=== PATIENT | male | born 2000 ===

== ENCOUNTER 2021-05-04 18:57 | Emergency (ER) | payer SELFPAY ==
[2021-05-04 23:18] VITALS: BP 142/91
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
== END 2021-05-05 00:10 | disposition home or self-care (01) ==
LOC: ED 18:57
DX: M79.602 Pain in left arm (principal); V49.49XA Driver injured in collision with other motor vehicles in traffic accident, initial encounter; Y93.89 Activity, other specified; Y92.89 Other specified places as the place of occurrence of the external cause; Y99.8 Other external cause status
CPT/HCPCS: 99281